=== PATIENT | female | born 1980 | race Caucasian/White ===

== ENCOUNTER 2017-10-22 06:05 | Emergency (ER) | payer SELFPAY ==
[2017-10-22] MEDS ORDERED: Ketorolac Tromethamine 60 MG/2 ML VIAL ONE (07:28)
== END 2017-10-22 08:26 | disposition home or self-care (01) ==
LOC: ERS 06:05
DX: H60.91 Unspecified otitis externa, right ear (principal); F17.210 Nicotine dependence, cigarettes, uncomplicated
CPT/HCPCS: 96372; J1885

== ENCOUNTER 2025-01-22 13:54 | Outpatient (CLI) | payer OTHER, SELFPAY ==
[2025-01-22] MEDS ORDERED: Iopamidol 370 76% 100 ML VIAL ONE (14:30)
== END 2025-01-22 13:55 | disposition home or self-care (01) ==
LOC: CT 13:54
PROVIDERS: ATTEND Urology
DX: N28.89 Other specified disorders of kidney and ureter (principal)
CPT/HCPCS: 71260; 74170; Q9967

== ENCOUNTER 2025-02-06 09:06 | Outpatient (CLI) | payer OTHER | END 2025-02-06 09:07 | disposition home or self-care (01) | LOC: SCSMRI 09:06 | PROVIDERS: ATTEND Urology | DX: N28.89 Other specified disorders of kidney and ureter (principal) | CPT/HCPCS: 74183 ==